=== PATIENT | female | born 1980 | race Caucasian/White ===

== ENCOUNTER 2021-08-19 14:05 | Inpatient (IN) | payer OTHER ==
[~2021-08-19] VITALS: Ht 170.2 cm; Wt 103.6 kg
[2021-08-19] MEDS ORDERED: LORAZEPAM INJ 2 MG/ML VIAL IV ONE (15:00)
[2021-08-19] MEDS ORDERED: ONDANSETRON HCL INJ 2MG/ML 2ML 2 MG/ML VIAL ONE ×2 (15:00→17:07)
[2021-08-19] MEDS ORDERED: LORAZEPAM INJ 2 MG/ML VIAL ONE (15:00)
[2021-08-19] MEDS ORDERED: SODIUM CHLORIDE 0.9% 1000ML 1,000 ML IV SCH ×3 (15:00→18:45)
[2021-08-19] MEDS ORDERED: SODIUM CHLORIDE 0.9% 50ML 0 ML ONE (15:17)
[2021-08-19] MEDS ORDERED: IOPAMIDOL 370 MG/ML 200 ML INFUS..BTL INJ ONE (15:18)
[2021-08-19] MEDS ORDERED: ONDANSETRON HCL INJ 2MG/ML 2ML 2 MG/ML VIAL IV STA ×3 (15:33→18:47)
[2021-08-19] MEDS ORDERED: FAMOTIDINE 20 MG/2 ML VIAL IV STA (16:38)
[2021-08-19] MEDS ORDERED: KETOROLAC TROMETHAMINE 30 MG/ML VIAL IV STA (16:38)
[2021-08-19] MEDS: METRONIDAZOLE 500MG/NS 100ML 100 ML IV SCH (18:00)
[2021-08-19] MEDS ORDERED: METRONIDAZOLE 500MG/NS 100ML 100 ML IV ONE (18:50)
[2021-08-19] MEDS ORDERED: CEFEPIME HCL 1 GM VIAL ONE (18:50)
[2021-08-19] MEDS ORDERED: SODIUM CHLORIDE 0.9% 250ML 250 ML ONE (18:50)
[2021-08-19] MEDS ORDERED: Morphine 4mg Syringe 4 MG/ML INJ IV ONE (19:00)
[2021-08-19] MEDS: CEFEPIME 2 GM in SODIUM CHLORIDE 0.9% 100 ML IV SCH (19:44)
[2021-08-19 20:26] VITALS: BP 163/109
[2021-08-19] MEDS: ONDANSETRON HCL INJ 2MG/ML 2ML 2 MG/ML VIAL IV PRN (21:04)
[2021-08-19] MEDS: HYDROMORPHONE 1MG/1ML INJ IV PRN (21:04)
[2021-08-19] MEDS: KCL 20MEQ/.9 SOD CHL 1,000 ML IV SCH (21:04)
[2021-08-19 21:19] VITALS: BP 163/109
[2021-08-20] VITALS (7 sets, daily range): BP systolic 115–144; BP diastolic 81–112
[2021-08-20] MEDS ORDERED: HYDRALAZINE HCL 20 MG/ML VIAL IV PRN
[2021-08-20] MEDS: METRONIDAZOLE 500MG/NS 100ML 100 ML IV SCH ×3 (00:07→16:10)
[2021-08-20] MEDS: LORAZEPAM INJ 2 MG/ML VIAL IV PRN ×3 (00:50→16:44)
[2021-08-20] MEDS: CEFEPIME 2 GM in SODIUM CHLORIDE 0.9% 100 ML IV SCH ×3 (02:09→17:59)
[2021-08-20] MEDS: ONDANSETRON HCL INJ 2MG/ML 2ML 2 MG/ML VIAL IV PRN (02:10)
[2021-08-20] MEDS: HYDROMORPHONE 1MG/1ML INJ IV PRN ×2 (02:10→20:29)
[2021-08-20] MEDS ORDERED: METOPROLOL TARTRATE INJ 1 MG/ML VIAL IV STA (03:47)
[2021-08-20 06:08] LABS: CHOL/HDL RATIO 3.1 (3.0-3.6); MAGNESIUM 1.4 MG/DL (1.3-2.1)
[2021-08-20 06:21] LABS: THYROID STIMULATING HORMONE 1.231 uIU/mL (0.350-4.940)
[2021-08-20 06:34] LABS: BASOPHILS % 0.3 % (0.0-1.0); EOSINOPHILS % 0.5 % (0.0-6.0); HEMATOCRIT 37.1 % (34.2-44.1); HEMOGLOBIN 11.7 g/dL (12.0-16.0); LYMPHOCYTES % 11.2 % (18.0-39.1); MEAN CORPUSCULAR HEMOGLOBIN 26.4 pg (28-32); MEAN CORPUSCULAR HGB CONC 31.5 g/dL (31-35); MEAN CORPUSCULAR VOLUME 83.7 fL (81-99); MONOCYTES # (AUTO) 0.6 (0.2-0.8); MONOCYTES % 6.3 % (4.4-11.3); NEUTROPHILS # (AUTO) 7.1 (2.1-6.9); NEUTROPHILS % 81.2 % (38.7-80.0); PLATELET COUNT 209 x10e3/uL (140-360); RED BLOOD COUNT 4.43 x10e6/uL (3.6-5.1); RED CELL DISTRIBUTION WIDTH 22.3 % (11.7-14.4)
[2021-08-20 06:49] LABS: ALANINE AMINOTRANSFERASE 35 IU/L (0-55); ALBUMIN 2.9 g/dL (3.5-5.0); ALBUMIN/GLOBULIN RATIO 0.9 (0.8-2.0); ALKALINE PHOSPHATASE 90 IU/L (40-150); ANION GAP 17.5 mmol/L (8-16); BLOOD UREA NITROGEN < 5 mg/dL (7-26); CALCIUM 8.5 mg/dL (8.4-10.2); CARBON DIOXIDE 17 mmol/L (22-29); CHLORIDE 109 mmol/L (98-107); CREATININE, SERUM 0.65 mg/dL (0.57-1.11); EST GLOMERULAR FILTRATION RATE 102 ML/MIN (60-); GLUCOSE 68 mg/dL (74-118); POTASSIUM 3.5 mmol/L (3.5-5.1); SODIUM 140 mmol/L (136-145)
[2021-08-20 06:52] LABS: BUN/CREATININE RATIO 8 (6-25)
[2021-08-20] MEDS: KCL 20MEQ/.9 SOD CHL 1,000 ML IV SCH (08:05)
[2021-08-20] MEDS ORDERED: MULTIVITAMINS- 12 INJECTION 10 ML, FOLIC ACID MDV 1 MG, THIAMINE HCL INJ 100 MG in SODI... IV ONE (14:15)
[2021-08-20] MEDS: CHLORDIAZEPOXIDE HCL 25 MG CAP PO PRN ×2 (14:21→22:07)
[2021-08-20] MEDS ORDERED: SODIUM CHLORIDE 0.9% 1000ML 1,000 ML IV SCH (15:30)
[2021-08-20] MEDS: METOPROLOL TARTRATE 25 MG TAB PO SCH (20:29)
[2021-08-20] MEDS: ENOXAPARIN 30 MG/0.3 ML SYR SC SCH (20:30)
[2021-08-21] VITALS: BP 156/104
[2021-08-21] MEDS: KCL 20MEQ/.9 SOD CHL 1,000 ML IV SCH ×2 (01:18→12:13)
[2021-08-21] MEDS: METRONIDAZOLE 500MG/NS 100ML 100 ML IV SCH ×2 (01:19→09:00)
[2021-08-21] MEDS: HYDROMORPHONE 1MG/1ML INJ IV PRN ×2 (01:35→08:56)
[2021-08-21] MEDS: CEFEPIME 2 GM in SODIUM CHLORIDE 0.9% 100 ML IV SCH ×2 (03:00→10:00)
[2021-08-21 04:00] VITALS: BP 144/94
[2021-08-21 04:57] LABS: BASOPHILS % 0.5 % (0.0-1.0); EOSINOPHILS # (AUTO) 0.1 (0.0-0.4); EOSINOPHILS % 1.5 % (0.0-6.0); HEMATOCRIT 33.7 % (34.2-44.1); HEMOGLOBIN 10.7 g/dL (12.0-16.0); LYMPHOCYTES # (AUTO) 1.4 (1.0-3.2); LYMPHOCYTES % 18.9 % (18.0-39.1); MEAN CORPUSCULAR HGB CONC 31.8 g/dL (31-35); MONOCYTES # (AUTO) 0.4 (0.2-0.8); MONOCYTES % 5.7 % (4.4-11.3); NEUTROPHILS # (AUTO) 5.5 (2.1-6.9); PLATELET COUNT 185 x10e3/uL (140-360); RED BLOOD COUNT 4.11 x10e6/uL (3.6-5.1); RED CELL DISTRIBUTION WIDTH 22.1 % (11.7-14.4)
[2021-08-21 05:29] LABS: ALBUMIN 2.7 g/dL (3.5-5.0); ALBUMIN/GLOBULIN RATIO 0.8 (0.8-2.0); ANION GAP 16.5 mmol/L (8-16); CALCIUM 8.2 mg/dL (8.4-10.2); CREATININE, SERUM 0.63 mg/dL (0.57-1.11); POTASSIUM 3.5 mmol/L (3.5-5.1)
[2021-08-21] MEDS ORDERED: FAMOTIDINE 20 MG TAB PO SCH (07:30)
[2021-08-21 07:38] VITALS: BP 165/100
[2021-08-21 08:00] VITALS: BP 165/100
[2021-08-21] MEDS: CHLORDIAZEPOXIDE HCL 25 MG CAP PO PRN (08:57)
[2021-08-21] MEDS: ONDANSETRON HCL INJ 2MG/ML 2ML 2 MG/ML VIAL IV PRN (08:57)
[2021-08-21] MEDS: ENOXAPARIN 30 MG/0.3 ML SYR SC SCH (09:00)
[2021-08-21] MEDS: METOPROLOL TARTRATE 25 MG TAB PO SCH (09:00)
[2021-08-21 11:23] VITALS: BP 147/95
[2021-08-21] MEDS ORDERED: VITAMIN B-1100 M1 PO (14:48)
[2021-08-21] MEDS ORDERED: FOLIC ACID0.4 MG PO (14:51)
[2021-08-21] MEDS ORDERED: CHLORDIAZEPOXIDE5 MG PO (14:51)
[2021-08-21] MEDS ORDERED: ZOFRAN4 MG PO (14:54)
[2021-08-21] MEDS ORDERED: PEPCID20 MG PO (14:55)
== END 2021-08-21 16:40 | disposition home or self-care (01) | DRG 439 ==
LOC: FSED 14:18 → ERHOLD 18:45 → MED/SURG2 20:17
PROVIDERS: ADMIT Internal Medicine; ATTEND Internal Medicine
PROC: 02HV33Z Insertion of Infusion Device into Superior Vena Cava, Percutaneous Approach (ICD-10-PCS; principal; 2021-08-20)
DX: K85.20 Alcohol induced acute pancreatitis without necrosis or infection (principal); F10.231 Alcohol dependence with withdrawal delirium; E87.6 Hypokalemia; F19.10 Other psychoactive substance abuse, uncomplicated; N83.9 Noninflammatory disorder of ovary, fallopian tube and broad ligament, unspecified; I10 Essential (primary) hypertension; R94.5 Abnormal results of liver function studies; Z20.822 Contact with and (suspected) exposure to COVID-19
CPT/HCPCS: 36415; 36569; 51700; 70450; 71045; 71250; 74176; 80053; 80061; 80076; 80307; 81003; 81025; 82553; 83036; 83605; 83690; 83735; 83880; 84100; 84443; 84484; 85025; 85379; 87040; 93005; 99284; J0360; J0692; J1170; J1650; J1885; J2060; J2405; J3411; J7030; J7050; Q9967; U0002